=== PATIENT | female | born 1985 | race Caucasian/White ===

== ENCOUNTER 2021-02-11 13:17 | Emergency (ER) | payer MEDICAID ==
[~2021-02-11] VITALS: Ht 165.1 cm; Wt 90.9 kg
[~2021-02-11 13:17] MED LIST: CEPH-585 PO; CIP500T PO; CLIN150C2 PO; CYCL-1 PO; FLO0.4C PO; ONDA4TAB12 PO; TRAM50TA2 PO; ibuprofen
[2021-02-11 13:30] VITALS: BP 117/78
[2021-02-11 13:56] LABS: BASOPHILS % (AUTO) 0.7 % (0-1); EOSINOPHILS # (AUTO) 0.1 X10'3 (0-0.9); EOSINOPHILS % (AUTO) 1.7 % (0-6); HEMATOCRIT 33.9 % (35.0-45.0); HEMOGLOBIN 10.8 g/dl (12.0-16.0); LYMPHOCYTES # (AUTO) 2.1 X10'3 (1.1-4.8); MEAN CORPUSCULAR HEMOGLOBIN 24.8 PG (27.0-31.0); MEAN CORPUSCULAR HGB CONC 31.8 g/dL (33.0-36.5); MEAN CORPUSCULAR VOLUME 78.1 FL (78-98); MEAN PLATELET VOLUME 7.9 FL (7.4-10.4); MONOCYTES # (AUTO) 0.3 X10'3 (0-0.9); NEUTROPHILS # (AUTO) 4.4 X10'3 (1.8-7.7); NEUTROPHILS % (AUTO) 62.6 % (42-75); PLATELET COUNT 376 X10'3 (140-440); RED BLOOD COUNT 4.34 X10'6 (4.20-5.60); RED CELL DISTRIBUTION WIDTH 17.7 % (11.5-14.5)
[2021-02-11 14:16] LABS: ALANINE AMINOTRANSFERASE 19 U/L (12-78); ALBUMIN 3.9 G/DL (3.4-5.0); ALBUMIN/GLOBULIN RATIO 0.9 (1.1-1.5); ALKALINE PHOSPHATASE 61 IU/L (46-116); ANION GAP 15 (8-16); ASPARTATE AMINO TRANSFERASE 9 U/L (10-37); BILIRUBIN,TOTAL 0.3 MG/DL (0.1-1.0); BLOOD UREA NITROGEN 18 MG/DL (7-18); BUN/CREATININE RATIO 29.5 (6.6-38.0); CALCIUM 9.1 MG/DL (8.5-10.1); CHLORIDE 103 MMOL/L (99-107); CREATININE 0.61 MG/DL (0.40-0.90); GLUCOSE 93 MG/DL (70-104); POTASSIUM 3.7 MMOL/L (3.5-5.1); SODIUM 140 MMOL/L (135-145); TOTAL CARBON DIOXIDE 22.1 MMOL/L (24-32); TOTAL PROTEIN 8.1 G/DL (6.4-8.2); eGFR > 90 ML/MIN
[2021-02-11 16:54] LABS: D-DIMER < 0.19 MG/L FEU (0-0.50)
== END 2021-02-11 17:37 | disposition home or self-care (01) ==
LOC: ER 13:18
DX: R07.89 Other chest pain (principal); R11.0 Nausea; Z87.440 Personal history of urinary (tract) infections; Z87.442 Personal history of urinary calculi; Z72.89 Other problems related to lifestyle; Z98.890 Other specified postprocedural states; Z88.2 Allergy status to sulfonamides; Z88.5 Allergy status to narcotic agent; Z88.1 Allergy status to other antibiotic agents; Z88.8 Allergy status to other drugs, medicaments and biological substances; Z79.2 Long term (current) use of antibiotics; Z79.899 Other long term (current) drug therapy
CPT/HCPCS: 36415; 71045; 80053; 83880; 84484; 85025; 85379; 93005; 99285

== ENCOUNTER 2022-08-17 20:55 | Emergency (ER) | payer MEDICAID, OTHER ==
[~2022-08-17] VITALS: Ht 162.6 cm; Wt 90.9 kg
[2022-08-17 21:04] VITALS: BP 124/84
== END 2022-08-17 23:16 | disposition home or self-care (01) ==
LOC: ER 20:56
DX: Z77.21 Contact with and (suspected) exposure to potentially hazardous body fluids (principal); Z87.442 Personal history of urinary calculi; Z79.899 Other long term (current) drug therapy; Z88.2 Allergy status to sulfonamides; Z88.1 Allergy status to other antibiotic agents
CPT/HCPCS: 99281

== ENCOUNTER 2023-08-07 18:45 | Emergency (ER) | payer BC, OTHER ==
[~2023-08-07] VITALS: Ht 162.6 cm; Wt 121.6 kg
[2023-08-07 19:26] LABS: BASOPHILS % (AUTO) 0.5 % (0-1); EOSINOPHILS % (AUTO) 0.4 % (0-6); HEMATOCRIT 34.7 % (35.0-45.0); HEMOGLOBIN 11.7 g/dl (12.0-16.0); LYMPHOCYTES # (AUTO) 1.9 X10'3 (1.1-4.8); LYMPHOCYTES % (AUTO) 21.9 % (21-51); MEAN CORPUSCULAR HEMOGLOBIN 27.6 PG (27.0-31.0); MEAN CORPUSCULAR HGB CONC 33.8 g/dL (33.0-36.5); MEAN CORPUSCULAR VOLUME 81.6 FL (78-98); MONOCYTES # (AUTO) 0.5 X10'3 (0-0.9); MONOCYTES % (AUTO) 5.8 % (2-12); NEUTROPHILS # (AUTO) 6.2 X10'3 (1.8-7.7); NEUTROPHILS % (AUTO) 71.4 % (42-75); PLATELET COUNT 391 X10'3 (140-440); RED BLOOD COUNT 4.24 X10'6 (4.20-5.60); RED CELL DISTRIBUTION WIDTH 16.3 % (11.5-14.5); WHITE BLOOD COUNT 8.7 X10'3 (4.5-11.0)
[2023-08-07 19:28] LABS: ALANINE AMINOTRANSFERASE 28 U/L (12-78); ALBUMIN 3.3 G/DL (3.4-5.0); ALBUMIN/GLOBULIN RATIO 0.8 (1.1-1.5); ALKALINE PHOSPHATASE 91 IU/L (46-116); ANION GAP 7 (8-16); ASPARTATE AMINO TRANSFERASE 19 U/L (10-37); BILIRUBIN,TOTAL 0.4 MG/DL (0.1-1.0); BLOOD UREA NITROGEN 11 MG/DL (7-18); BUN/CREATININE RATIO 12.9 (10.0-20.0); CALCIUM 8.9 MG/DL (8.5-10.1); CHLORIDE 101 MMOL/L (99-107); CREATININE 0.85 MG/DL (0.40-0.90); GLUCOSE 106 MG/DL (70-104); POTASSIUM 3.5 MMOL/L (3.5-5.1); SODIUM 133 MMOL/L (135-145); TOTAL CARBON DIOXIDE 24.8 MMOL/L (24-32); TOTAL PROTEIN 7.6 G/DL (6.4-8.2); eCRCL 76 ML/MIN; eGFR 74 ML/MIN
[2023-08-07 19:38] LABS: PRO BRAIN NATRIURETIC PEPTIDE < 30 PG/ML (0-125)
[2023-08-07] MEDS ORDERED: diphenhydrAMINE 50 mg/ml inj IV ONE ×2 (20:30→21:35)
[2023-08-07] MEDS ORDERED: magnesium 2GM in 50ml NS 50 ML IV ONE (20:30)
[2023-08-07] MEDS ORDERED: metoclopramide 5 mg/ml inj IV ONE ×2 (20:30→21:35)
[2023-08-07 20:43] LABS: HCG SERUM QL NEGATIVE
[2023-08-07 20:47] LABS: BILIRUBIN,URINE NEGATIVE (Neg); CLARITY,URINE SLIGHTLY CLOUDY (Clear); COLOR,URINE STRAW (Yellow); GLUCOSE, URINE NEGATIVE (Neg); KETONES,URINE NEGATIVE (Neg); LEUKOCYTE ESTERASE ,URINE NEGATIVE (Neg); NITRITES, URINE NEGATIVE (Neg); OCCULT BLOOD,URINE MODERATE (Neg); PROTEIN,URINE NEGATIVE (Neg); UROBILINOGEN,URINE 0.2 E.U/dL (0.2-1.0)
[2023-08-07 20:53] LABS: UA COLLECTION TYPE CLN CATCH MIDSTREAM
[2023-08-07 20:54] LABS: MUCUS STRANDS FEW /LPF (Neg); SQUAMOUS EPITHELIAL CELL,UR MODERATE /LPF (FEW)
[2023-08-07 20:55] LABS: BACTERIA,URINE FEW /HPF (Neg); RENAL CELLS, URINE FEW /HPF; WBC,URINE NONE SEEN /HPF (0-4)
[2023-08-07] MEDS ORDERED: meclizine 12.5mg tablet PO ONE (20:55)
[2023-08-07 23:12] VITALS: BP 116/74; PULSE 81; RESP 16; TEMP 98.1; O2SAT 98
== END 2023-08-07 23:17 | disposition home or self-care (01) ==
LOC: ER 18:46
DX: G43.909 Migraine, unspecified, not intractable, without status migrainosus (principal); Z88.0 Allergy status to penicillin; Z88.8 Allergy status to other drugs, medicaments and biological substances; Z88.2 Allergy status to sulfonamides; Z88.5 Allergy status to narcotic agent; Z79.2 Long term (current) use of antibiotics; Z79.899 Other long term (current) drug therapy
CPT/HCPCS: 36415; 71045; 80053; 81001; 83880; 84484; 84703; 85025; 93005; 96365; 96366; 96375; 99285; J1200; J2765; J3475; J8597

== ENCOUNTER 2024-06-29 12:23 | Emergency (ER) | payer BC ==
[~2024-06-29] VITALS: Ht 162.6 cm; Wt 130.1 kg
[~2024-06-29 12:23] MED LIST changes: +ONDA-243 PO; -ONDA4TAB12 PO
[2024-06-29 13:05] LABS: BASOPHILS % (AUTO) 0.7 % (0-1); EOSINOPHILS # (AUTO) 0.1 X10'3 (0-0.9); EOSINOPHILS % (AUTO) 1.3 % (0-6); HEMATOCRIT 29.8 % (35.0-45.0); HEMOGLOBIN 9.5 g/dl (12.0-16.0); LYMPHOCYTES # (AUTO) 1.6 X10'3 (1.1-4.8); LYMPHOCYTES % (AUTO) 25.8 % (21-51); MEAN CORPUSCULAR HEMOGLOBIN 24.1 PG (27.0-31.0); MEAN CORPUSCULAR HGB CONC 31.9 g/dL (33.0-36.5); MEAN CORPUSCULAR VOLUME 75.7 FL (78-98); MEAN PLATELET VOLUME 7.4 FL (7.4-10.4); MONOCYTES # (AUTO) 0.4 X10'3 (0-0.9); NEUTROPHILS % (AUTO) 66.2 % (42-75); PLATELET COUNT 371 X10'3 (140-440); RED BLOOD COUNT 3.94 X10'6 (4.20-5.60); RED CELL DISTRIBUTION WIDTH 18.9 % (11.5-14.5)
[2024-06-29 13:25] LABS: ALBUMIN 3.1 G/DL (3.4-5.0); ANION GAP 10 (8-16); BLOOD UREA NITROGEN 6 MG/DL (7-18); BUN/CREATININE RATIO 7.7 (10.0-20.0); CALCIUM 8.6 MG/DL (8.5-10.1); CHLORIDE 105 MMOL/L (99-107); CREATININE 0.78 MG/DL (0.40-0.90); GLUCOSE 109 MG/DL (70-104); POTASSIUM 3.7 MMOL/L (3.5-5.1); PRO BRAIN NATRIURETIC PEPTIDE 59 PG/ML (0-125); SODIUM 141 MMOL/L (135-145); TOTAL CARBON DIOXIDE 25.7 MMOL/L (24-32); eCRCL 82 ML/MIN; eGFR 81 ML/MIN
[2024-06-29 13:33] LABS: PLATELET ESTIMATE NORMAL
[2024-06-29 13:35] LABS: ANISOCYTOSIS 2+; MICROCYTOSIS 1+; POLYCHROMASIA FEW; STOMATOCYTES FEW
[2024-06-29] MEDS: nitroGLYCERIN 0.4mg SUBLingual tab SL ONE (14:01)
[2024-06-29 15:50] VITALS: BP 125/84; PULSE 77; RESP 16; TEMP 98.5; O2SAT 98
[2024-06-29] MEDS ORDERED: IBUP-1985 PO (15:54)
== END 2024-06-29 16:00 | disposition home or self-care (01) ==
LOC: ER 12:24
DX: R07.89 Other chest pain (principal); R05.9 Cough, unspecified; R06.02 Shortness of breath; R22.43 Localized swelling, mass and lump, lower limb, bilateral; G43.909 Migraine, unspecified, not intractable, without status migrainosus; I10 Essential (primary) hypertension; Z87.440 Personal history of urinary (tract) infections; Z87.442 Personal history of urinary calculi; Z72.89 Other problems related to lifestyle; Z79.899 Other long term (current) drug therapy; Z79.2 Long term (current) use of antibiotics; Z88.0 Allergy status to penicillin; Z88.1 Allergy status to other antibiotic agents; Z88.2 Allergy status to sulfonamides; Z88.8 Allergy status to other drugs, medicaments and biological substances
CPT/HCPCS: 36415; 71045; 80048; 83880; 84484; 85008; 85025; 93005; 99285

== ENCOUNTER 2024-09-07 08:29 | Outpatient (CLI) | payer BC ==
[~2024-09-07 08:29] MED LIST changes: +IBUP-1985 PO
[2024-09-07 09:09] LABS: BILIRUBIN,URINE NEGATIVE (Neg); CLARITY,URINE SLIGHTLY CLOUDY (Clear); COLOR,URINE YELLOW (Yellow); GLUCOSE, URINE NEGATIVE (Neg); KETONES,URINE NEGATIVE (Neg); LEUKOCYTE ESTERASE ,URINE SMALL (Neg); NITRITES, URINE NEGATIVE (Neg); OCCULT BLOOD,URINE LARGE (Neg); PROTEIN,URINE TRACE mg/dl (Neg); UROBILINOGEN,URINE 0.2 E.U/dL (0.2-1.0)
[2024-09-07 09:12] LABS: D-DIMER 0.38 MG/L FEU (0-0.50)
[2024-09-07 09:15] LABS: BASOPHILS % (AUTO) 0.5 % (0-1); EOSINOPHILS # (AUTO) 0.1 X10'3 (0-0.9); EOSINOPHILS % (AUTO) 1.1 % (0-6); HEMOGLOBIN 12.2 g/dl (12.0-16.0); LYMPHOCYTES # (AUTO) 2.5 X10'3 (1.1-4.8); LYMPHOCYTES % (AUTO) 26.2 % (21-51); MEAN CORPUSCULAR HEMOGLOBIN 28.6 PG (27.0-31.0); MEAN CORPUSCULAR VOLUME 84.3 FL (78-98); MONOCYTES # (AUTO) 0.6 X10'3 (0-0.9); MONOCYTES % (AUTO) 6.2 % (2-12); NEUTROPHILS # (AUTO) 6.2 X10'3 (1.8-7.7); PLATELET COUNT 377 X10'3 (140-440); RED BLOOD COUNT 4.27 X10'6 (4.20-5.60); RED CELL DISTRIBUTION WIDTH 20.5 % (11.5-14.5); UA COLLECTION TYPE CLN CATCH MIDSTREAM; WHITE BLOOD COUNT 9.4 X10'3 (4.5-11.0)
[2024-09-07 09:16] LABS: BACTERIA,URINE FEW /HPF (Neg); MUCUS STRANDS NONE SEEN /LPF (Neg); RBC,URINE 20-50 /HPF (0-2); SQUAMOUS EPITHELIAL CELL,UR MANY /LPF (FEW); WBC,URINE 20-30 /HPF (0-4)
[2024-09-07 09:43] LABS: ALANINE AMINOTRANSFERASE 27 U/L (12-78); ALBUMIN 3.3 G/DL (3.4-5.0); ALBUMIN/GLOBULIN RATIO 0.8 (1.1-1.5); ALKALINE PHOSPHATASE 86 IU/L (46-116); ANION GAP 10 (8-16); ASPARTATE AMINO TRANSFERASE 13 U/L (10-37); BILIRUBIN,TOTAL 0.3 MG/DL (0.1-1.0); BLOOD UREA NITROGEN 11 MG/DL (7-18); BUN/CREATININE RATIO 13.4 (10.0-20.0); CALCIUM 10.3 MG/DL (8.5-10.1); CHLORIDE 103 MMOL/L (99-107); CHOL/HDL RATIO 3.1 (0.00-4.99); CHOLESTEROL 170 MG/DL (0-200); CREATININE 0.82 MG/DL (0.40-0.90); FREE T4 (FREE THYROXINE) 0.86 NG/DL (0.73-1.40); GLUCOSE 99 MG/DL (70-104); HDL CHOLESTEROL 55 MG/DL (35-60); LDL CHOLESTEROL 104 MG/DL (50-100); POTASSIUM 3.9 MMOL/L (3.5-5.1); SODIUM 139 MMOL/L (135-145); THYROID STIMULATING HORMONE 2.33 ulU/ml (0.34-4.50); TOTAL CARBON DIOXIDE 26.5 MMOL/L (24-32); TOTAL PROTEIN 7.6 G/DL (6.4-8.2); TRIGLYCERIDES 107 MG/DL (20-135); eGFR 77 ML/MIN
[2024-09-07 11:00] LABS: PLATELET ESTIMATE NORMAL
[2024-09-07 11:01] LABS: ANISOCYTOSIS 3+; ELLIPTOCYTES FEW; POLYCHROMASIA FEW
== END 2024-09-07 23:59 | disposition home or self-care (01) ==
LOC: RAD 08:29
PROVIDERS: ATTEND Nurse Practitioner Family
DX: Z12.2 Encounter for screening for malignant neoplasm of respiratory organs (principal); Z13.29 Encounter for screening for other suspected endocrine disorder; Z13.220 Encounter for screening for lipoid disorders; Z00.01 Encounter for general adult medical examination with abnormal findings; I10 Essential (primary) hypertension; F17.211 Nicotine dependence, cigarettes, in remission; F41.9 Anxiety disorder, unspecified; R60.0 Localized edema; R06.09 Other forms of dyspnea; R06.02 Shortness of breath; Z87.898 Personal history of other specified conditions
CPT/HCPCS: 36415; 71271; 80053; 80061; 81001; 82043; 84439; 84443; 85008; 85025; 85379

== ENCOUNTER 2024-12-22 17:53 | Emergency (ER) | payer BC ==
[~2024-12-22] VITALS: Ht 162.6 cm; Wt 115.5 kg
[2024-12-22 17:56] VITALS: TEMP 98.3
[2024-12-22 18:29] LABS: BASOPHILS % (AUTO) 0.2 % (0-1); EOSINOPHILS # (AUTO) 0.1 X10'3 (0-0.9); HEMATOCRIT 37.2 % (35.0-45.0); LYMPHOCYTES # (AUTO) 1.5 X10'3 (1.1-4.8); LYMPHOCYTES % (AUTO) 13.4 % (21-51); MEAN CORPUSCULAR HEMOGLOBIN 27.4 PG (27.0-31.0); MEAN CORPUSCULAR HGB CONC 32.4 g/dL (33.0-36.5); MEAN CORPUSCULAR VOLUME 84.7 FL (78-98); MEAN PLATELET VOLUME 8.1 FL (7.4-10.4); MONOCYTES # (AUTO) 0.5 X10'3 (0-0.9); MONOCYTES % (AUTO) 4.6 % (2-12); NEUTROPHILS # (AUTO) 9.2 X10'3 (1.8-7.7); NEUTROPHILS % (AUTO) 80.8 % (42-75); PLATELET COUNT 467 X10'3 (140-440); RED BLOOD COUNT 4.39 X10'6 (4.20-5.60); WHITE BLOOD COUNT 11.4 X10'3 (4.5-11.0)
[2024-12-22 18:44] LABS: ALANINE AMINOTRANSFERASE 29 U/L (12-78); ALBUMIN 3.4 G/DL (3.4-5.0); ALBUMIN/GLOBULIN RATIO 0.8 (1.1-1.5); ALKALINE PHOSPHATASE 80 IU/L (46-116); ANION GAP 12 (8-16); ASPARTATE AMINO TRANSFERASE 11 U/L (10-37); BILIRUBIN,TOTAL 0.5 MG/DL (0.1-1.0); BLOOD UREA NITROGEN 8 MG/DL (7-18); BUN/CREATININE RATIO 12.1 (10.0-20.0); CALCIUM 8.9 MG/DL (8.5-10.1); CHLORIDE 103 MMOL/L (99-107); CREATININE 0.66 MG/DL (0.40-0.90); GLUCOSE 107 MG/DL (70-104); POTASSIUM 3.7 MMOL/L (3.5-5.1); SODIUM 138 MMOL/L (135-145); TOTAL CARBON DIOXIDE 22.9 MMOL/L (24-32); TOTAL PROTEIN 7.8 G/DL (6.4-8.2); eCRCL 97 ML/MIN; eGFR > 90 ML/MIN
[2024-12-22 18:52] LABS: PRO BRAIN NATRIURETIC PEPTIDE < 30 PG/ML (0-125)
[2024-12-22] MEDS: ondansetron 4mg rapidly disintigrating tab PO ONE (19:54)
[2024-12-22] MEDS: diazepam 5mg tablet PO ONE (19:54)
[2024-12-22] MEDS: meclizine 12.5mg tablet PO ONE (19:54)
[2024-12-22] MEDS ORDERED: DIAZ5TAB PO (20:07)
[2024-12-22] MEDS ORDERED: ONDA-243 PO (20:07)
[2024-12-22] MEDS ORDERED: MECL-302 PO (20:07)
[2024-12-22 20:23] VITALS: BP 124/82; PULSE 95; RESP 16; O2SAT 100
== END 2024-12-22 20:25 | disposition home or self-care (01) ==
LOC: ER 17:54
DX: R42 Dizziness and giddiness (principal); I10 Essential (primary) hypertension; Z87.440 Personal history of urinary (tract) infections; Z88.0 Allergy status to penicillin; Z88.5 Allergy status to narcotic agent; Z88.6 Allergy status to analgesic agent; Z88.2 Allergy status to sulfonamides; Z88.1 Allergy status to other antibiotic agents; Z79.2 Long term (current) use of antibiotics; Z79.899 Other long term (current) drug therapy
CPT/HCPCS: 36415; 71045; 80053; 83880; 84484; 85025; 93005; 99285; J8597

== ENCOUNTER 2025-03-12 03:20 | Emergency (ER) | payer BC, OTHER ==
[~2025-03-12] VITALS: Ht 162.6 cm; Wt 106.8 kg
[~2025-03-12 03:20] MED LIST changes: +DIAZ5TAB PO; -FLO0.4C PO; +MECL-302 PO; +TAMS-55 PO
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
[2025-03-12 04:00] VITALS: BP 125/98; PULSE 68; RESP 14; TEMP 98.6; O2SAT 100
== END 2025-03-12 04:03 | disposition home or self-care (01) ==
LOC: ER 03:20
DX: Z77.21 Contact with and (suspected) exposure to potentially hazardous body fluids (principal); I10 Essential (primary) hypertension; G43.909 Migraine, unspecified, not intractable, without status migrainosus; Z88.0 Allergy status to penicillin; Z88.2 Allergy status to sulfonamides; Z88.1 Allergy status to other antibiotic agents; Z88.5 Allergy status to narcotic agent; Z79.899 Other long term (current) drug therapy; Z87.442 Personal history of urinary calculi; Z72.89 Other problems related to lifestyle
CPT/HCPCS: 99281

== ENCOUNTER 2025-05-13 23:47 | Emergency (ER) | payer BC, OTHER ==
[~2025-05-13] VITALS: Ht 162.6 cm; Wt 96.3 kg
--- NOTE | 2025-05-14 00:43 | Physician Documentation ---
History of Present Illness ~ Chief Complaint: Headache Stated Complaint: MIGRAINE,VERTIGO Time Seen by MD: 00:42 Primary Medical [facility] Mode of Arrival: POV, Ambulatory HPI Patient presents to the emergency room with migraine headache over the past two days. She has history of migraines. That has taken some Excedrin with limited benefit. She is also having some vertigo however these symptoms has been going on for the past year. She denies one-sided symptoms. Positive photophobia Medication Reconciliation Allergies: Coded Allergies: Penicillins (Unverified Allergy, Severe, 05/14/25) phenazopyridine HCl (Verified Allergy, Mild, RASH, 05/14/25) Sulfa (Sulfonamide Antibiotics) (Verified Allergy, Unknown, 05/14/25) amoxicillin trihydrate (Verified Allergy, Unknown, 05/14/25) codeine (Unverified Allergy, Unknown, 05/14/25) hydrocodone bit (Verified Allergy, Unknown, 05/14/25) potassium clavulanate (Verified Allergy, Unknown, 08/07/23) morphine (Unverified Adverse Reaction, Unknown, 12/22/24) VOMITING Scheduled Cephalexin*Monohydrate* (Keflex*), 2 CAP PO BID Ciprofloxacin Hcl* (Cipro*), 500 MG PO BID, (Reported) Clindamycin (Cleocin ), 300 MG PO Q8H Cyclobenzaprine* (Cyclobenzaprine*), 1 TAB PO TID Meclizine HCl (Meclizine HCl), 2 TAB PO Q6H Tamsulosin Hcl* (Flomax*), 1 CAP PO DAILY Scheduled PRN Diazepam (Valium), 1 TAB PO Q12H PRN for muscle spasms Ibuprofen (Ibuprofen), 1 TAB PO Q6H PRN for pain ONDANSETRON ODT 4mg tablet (Ondansetron Odt), 1 TABLET PO Q6H PRN for nausea/vomiting ONDANSETRON ODT 4mg tablet (Ondansetron Odt), 1 TAB PO Q6H PRN PRN for nausea/vomiting Tramadol HCl (Tramadol HCl), 100 MG PO Q6H PRN Miscellaneous Medications [ibuprofen], (Reported) Past Medical History Past Medical History: Migraine, Hypertension, Pancreatitis, Kidney Stones, UTI, *PSYCH* Past Surgical History: orthopedic surgeries, other Last Menstrual Period: May 09, 2025 Alcohol Use: Occasionally Drug Use: none Lives with: Family Lives In: Home Occupation: employed [employer] ROS All review of systems negative except as per HPI Physical Exam Vital Signs: Temperature: 98.4, Heart Rate: 99, Respiratory Rate: 16, BP: 125/82, Pulse Oximetry: 99, Weight: 96.300 Oxygen Flow Rate: 0 Physical Exam General: Patient is awake, alert, oriented x4 in no acute distress Head: Normocephalic and atraumatic. Eyes: Conjunctival normal. EOMI. PERRL. ENT: Mucous membranes moist. Neck: Supple, trachea is midline. Chest: Clear to auscultation bilaterally without rales, rhonchi, or wheezes. There is no accessory muscle use or retractions. Cardiac: RRR without murmurs, gallops, or rubs. Neuro: Cranial nerves II-XII grossly intact. No focal neuro deficits. Patient ambulating without difficulty. Progress Results/Orders Results/Orders Orders - ALAN MARCELO MD Magnesium Sulf-Water 2g/50ml (Magnesium (05/14/25 00:50) Completed Orders - ALAN MARCELO MD Ketorolac Trometh 15mg/Ml Vial (Toradol (05/14/25 00:50) Normal Saline 1000ml (0.9% Sodium Chlori (05/14/25 00:50) Metoclopramide Inj (Reglan Inj) (05/14/25 00:50) Diphenhydramine Inj (Benadryl Inj.) (05/14/25 00:50) Medications Received in ER Medications (Trade) Dose Ordered Sig/Ruthie Route PRN Reason Start Time Stop Time Status Last Admin Dose Admin (Toradol injection) 15 mg ONCE ONCE IV 05/14/25 00:50 05/14/25 00:51 DC 05/14/25 01:24 15 MG Sodium Chloride 1,000 ml @ 1,000 mls/hr ONCE ONCE IV 05/14/25 00:50 05/14/25 01:49 DC 05/14/25 01:26 1,000 MLS/HR (Reglan inj) 5 mg ONCE ONCE IV 05/14/25 00:50 05/14/25 00:51 DC 05/14/25 01:25 5 MG (Benadryl inj.) 25 mg ONCE ONCE IV 05/14/25 00:50 05/14/25 00:51 DC 05/14/25 01:24 25 MG Magnesium Sulfate 50 ml @ 25 mls/hr ONCE ONCE IV 05/14/25 00:50 05/14/25 02:49 05/14/25 01:26 25 MLS/HR Vital Signs 05/14/25 05/14/25 00:01 00:11 Temp 98.4 Pulse 99 Resp 16 B/P (MAP) 125/82 Pulse Ox 99 O2 Flow Rate 0 Medical Decision Making Findings Patient presented to the emergency room with headache. Headache resolved with medications. He had not suspect acute emergent intracranial process such as bleeds or meningitis. Differential Dx:Considerations: Include: CURIEL-Cluster, CURIEL-Migraine, CURIEL- Hypertensive, Carbon monoxide toxicity, CVA, Hemorrhage-Epidural, Hemorrhage- Intracerebral, Hemorrhage-Subarachnoid, Meningitis, Temporal arteritis Departure Disposition: HOME / SELF CARE / HOMELESS Impression: Primary Impression: Migraine Condition: Improved Discharge Instructions: Migraine Headache Referrals: NO PRIMARY CARE PROVIDER (PCP) Signature Scribe Signature: No scribe Attestation: The note accurately reflects work and decisions made by me.Alan Marcelo MD 05/14/25 01:52 ALAN MARCELO MD May 14, 2025 00:43
[2025-05-14] MEDS: ketorolac trometh 15mg/ml vial 15 MG/ML ML IV ONE (01:24)
[2025-05-14] MEDS: metoclopramide 5 mg/ml inj IV ONE (01:25)
[2025-05-14] MEDS: normal saline 1000ml 1,000 ML IV ONE (01:26)
[2025-05-14] MEDS: magnesium sulf-water 2g/50mL 50 ML IV ONE (01:26)
[2025-05-14 02:31] VITALS: BP_DIAS 64
[2025-05-14 03:48] VITALS: BP_SYST 113; PULSE 77; RESP 19; TEMP 98.4; O2SAT 100
== END 2025-05-14 03:51 | disposition home or self-care (01) ==
LOC: ER 23:47
DX: G43.909 Migraine, unspecified, not intractable, without status migrainosus (principal); I10 Essential (primary) hypertension; Z87.440 Personal history of urinary (tract) infections; Z88.0 Allergy status to penicillin; Z88.2 Allergy status to sulfonamides; Z88.5 Allergy status to narcotic agent
CPT/HCPCS: 96365; 96366; 96375; 99284; J1200; J1885; J2765; J7030

== ENCOUNTER 2025-05-21 08:51 | Outpatient (CLI) | payer BC ==
--- NOTE | 2025-05-21 15:24 | RADIOLOGY REPORT ---
Procedure: CT CT CHEST Reason for study/Clinical History: SOLITARY PULMONARY NODULE;ABNORMAL FINDINGS ON DX IMAGING OF NIRMAL WARRENUC Comparison Study: CT CT CHEST LOW DOSE on DOS: 09/07/24 TECHNIQUE: Multidetector CT of the chest was performed from the lung apices to the upper abdomen with out the use of intravenous contract. Axial, coronal and sagittal multiplanar reformats were performed . Radiation Dose Information: CT Dose: CTDI volume is 16.7 mGy. Dose-length product is 546 mGy*cm The dose indicators for CT are the volume Computed Tomography (CT) Dose Index (CTDIvol) and the Dose Length Product (DLP), and are measured in units of mGy and mGy-cm, respectively. These indicators are not patient dose, but values generated from the CT scanner acquisition factors. The report includes radiation exposure data for exposures received during this examination. FINDINGS: Lower neck: Unremarkable. Lungs: No focal consolidation. Unchanged 0.6 cm nodule in the right lower lobe, image 60. Heart/Vascular Structures: Borderline cardiomegaly. Lymph Nodes: No adenopathy Pleura: No pleural effusion or significant pneumothorax. Musculoskeletal: No acute osseous abnormality. Soft tissues: Normal. Upper abdomen: Hepatic steatosis. IMPRESSION: Unchanged 0.6 cm nodule in the right lower lobe, image 60. Fleischner Society pulmonary nodule recommendations (2017): Single solid nodule <6 mm Low-risk patients: no routine follow-up required High-risk patients: optional CT at 12 months (particularly with suspicious nodule morphology and/or upper lobe location) Solitary solid nodule 6-8 mm Low-risk patients: CT at 6-12 months, then consider CT at 18-24 months High-risk patients: CT at 6-12 months, then CT at 18-24 months Solitary solid nodule >8 mm (>250 mm3) Low-risk and high-risk patients: consider CT at 3 months, PET/CT, or tissue sampling Multiple solid nodules <6 mm Low-risk patients: no routine follow-up required High-risk patients: optional CT at 12 months Multiple solid nodules >6 mm Low-risk patients: CT at 3-6 months, then consider CT at 18-24 months High-risk patients: CT at 3-6 months, then CT at 18-24 months When multiple nodules are present, the most suspicious nodule should guide further individualized management. Solitary groundglass opacities < 6 mm require no follow-up Multiple groundglass opacities < 6 mm: CT 3-6 months. If stable consider CT at 2 , and 4 years Groundglass opacities >6 mm: follow-up in 6-12 months and then every 2 years for 5 years. Groundglass opacities greater than 6 mm with part solid component follow-up CT in 3-6 months to confirm persistence. If unchanged and solid component remains less than [address] for 5 years Multiple groundglass opacities greater than 6 mm: CT at 3-6 months. Subsequent management based on the most suspicious nodules. These recommendations do not necessarily apply to women, patients with immunosuppression or a prior history of cancer, patients with multiple nodules that are suspicious for metastasis or infection, or patients with mediastinal lymphadenopathy or pleural effusion in whom cancer is strongly suspected.
== END 2025-05-21 23:59 | disposition home or self-care (01) ==
LOC: 64 CT 08:51
PROVIDERS: ATTEND Nurse Practitioner Family
DX: R91.1 Solitary pulmonary nodule (principal); R93.89 Abnormal findings on diagnostic imaging of other specified body structures; R31.29 Other microscopic hematuria; N81.4 Uterovaginal prolapse, unspecified
CPT/HCPCS: 71250

== ENCOUNTER 2025-05-30 08:35 | Outpatient (CLI) | payer BC ==
--- NOTE | 2025-05-30 11:19 | RADIOLOGY REPORT ---
US ULTRASOUND KIDNEY NON VASC HISTORY: HEMATURIA, UTURINE PROLAPSE COMPARISON: None TECHNIQUE: Transverse and longitudinal grayscale and color doppler images were obtained of the kidney s and bladder. FINDINGS: Right kidney: Size: 12.7 cm Cortical thickness: Normal Echogenicity: Normal Stones: None Masses: None Hydronephrosis: None Ureters: Not well visualized. Other: None Left kidney: Size: 11.8 cm Cortical thickness: Normal Echogenicity: Normal Stones: None Masses: None Hydronephrosis: None Ureters: Not well visualized. Other: None Bladder: Normal Other: None. IMPRESSION: Normal renal ultrasound.
== END 2025-05-30 23:59 | disposition home or self-care (01) ==
LOC: RAD 08:35
PROVIDERS: ATTEND Nurse Practitioner Family
DX: R93.89 Abnormal findings on diagnostic imaging of other specified body structures (principal); R31.29 Other microscopic hematuria; N81.4 Uterovaginal prolapse, unspecified
CPT/HCPCS: 76770

== ENCOUNTER 2025-05-30 08:43 | Outpatient (CLI) | payer BC ==
[2025-05-30 09:51] LABS: MEAN PLATELET VOLUME 8.2 FL (7.4-10.4); RED CELL DISTRIBUTION WIDTH 16.9 % (11.5-14.5)
[2025-05-30 10:23] LABS: CREATININE 0.77 MG/DL (0.40-0.90); TOTAL CARBON DIOXIDE 26.5 MMOL/L (24-32); eGFR 82 ML/MIN
== END 2025-05-30 23:59 | disposition home or self-care (01) ==
LOC: LAB 08:43
PROVIDERS: ATTEND Specialist
DX: N64.3 Galactorrhea not associated with childbirth (principal)
CPT/HCPCS: 36415; 80048; 80076; 84146; 84702; 85025

== ENCOUNTER 2025-08-05 05:31 | Observation (INO) | payer BC ==
[2025-07-31 14:37] LABS: LEUKOCYTE ESTERASE ,URINE SMALL (Neg); MEAN PLATELET VOLUME 7.8 FL (7.4-10.4); NITRITES, URINE NEGATIVE (Neg); OCCULT BLOOD,URINE LARGE (Neg); PRE OP HEMATOCRIT 30.2 % (35.0-45.0); PRE OP PLATELET COUNT 396 X10'3 (140-440); PRE OP WHITE BLOOD COUNT 7.2 10'3 (4.8-10.8); RED CELL DISTRIBUTION WIDTH 19.5 % (11.5-14.5)
[2025-07-31 14:40] LABS: UA COLLECTION TYPE CLN CATCH MIDSTREAM
[2025-07-31 14:41] LABS: PRE OP HEMOGLOBIN 9.8 g/dL (12.0-16.0)
[2025-07-31 14:47] LABS: MUCUS STRANDS MODERATE /LPF (Neg)
[2025-07-31 14:48] LABS: SQUAMOUS EPITHELIAL CELL,UR FEW /LPF (FEW)
[2025-07-31 14:55] LABS: PRE OP INR 1.0 INR; PRE OP PARTIAL THROMB. TIME 30.0 SECONDS (22-32); PRE OP PROTIME 10.5 SECONDS (9.0-12.0)
[2025-07-31 14:58] LABS: CREATININE 0.75 MG/DL (0.40-0.90); PRE OP ALT 17 U/L (30-65); PRE OP ANION GAP 7 (8-16); PRE OP AST 15 U/L (10-37); PRE OP BILIRUB, TOTAL 0.3 MG/DL (0.0-1.0); PRE OP GLUCOSE 94 MG/DL (70-104); PRE OP SODIUM 142 MMOL/L (135-145); TOTAL CARBON DIOXIDE 27.2 MMOL/L (24-32); eGFR 85 ML/MIN
[2025-07-31 15:04] LABS: HCG SERUM QL NEGATIVE
[2025-07-31 15:05] LABS: PRE OP POTASSIUM 3.1 MMOL/L (3.4-5.1)
[2025-07-31 15:25] LABS: PLATELET ESTIMATE NORMAL
[2025-07-31 15:27] LABS: ELLIPTOCYTES FEW
[2025-08-05] VITALS (30 sets, daily range): BP systolic 95–131; BP diastolic 45–97; PULSE 63–104; RESP 13–21; TEMP 96.6–98.6; O2SAT 96–100
[~2025-08-05] VITALS: Ht 162.6 cm; Wt 88.2 kg
[2025-08-05] MEDS: NORMAL SALINE IV ONE (05:30)
[2025-08-05] MEDS: clindamycin-Cleocin 900mg/D5W 50 ML IV ONE (05:30)
[2025-08-05] MEDS: GENTAMICIN IV ONE (05:30)
[~2025-08-05 05:31] MED LIST changes: +ASPI-130; -CEPH-585 PO; -CIP500T PO; -CLIN150C2 PO; -CYCL-1 PO; -DIAZ5TAB PO; -IBUP-1985 PO; -MECL-302 PO; +MULT-661 PO; -ONDA-243 PO; -TAMS-55 PO; -TRAM50TA2 PO; -ibuprofen
[2025-08-05] MEDS: ringers solution, lacted 1,000 ML IV SCH ×2 (06:31→10:00)
[2025-08-05] MEDS ORDERED: BUPIVAcaine 0.25% w/Epi /PF 30ml vial ONE (06:43)
[2025-08-05] MEDS ORDERED: clindamycin phosphate 40gm vag cream ONE (06:43)
[2025-08-05] MEDS ORDERED: vasoPRESSIN 20 units/ml inj. ONE ×2 (06:44→06:46)
[2025-08-05 07:02] LABS: ISTAT ANION GAP 14 (8-12); ISTAT BUN 9 mg/dL (7-18); ISTAT CL 106 mmol/L (99-107); ISTAT CREATININE 0.7 mg/dL (0.6-1.1); ISTAT GLUCOSE 89 mg/dL (70-104); ISTAT HGB 10.9 g/dl (12.0-16.0); ISTAT Hct 32 %PCV (35-45); ISTAT IONIZED CALCIUM 1.19 mmol/L (1.03-1.32); ISTAT K 3.3 mmol/L (3.5-5.1); ISTAT NA 139 mmol/L (135-145); ISTAT TOTAL CO2 19 mmol/L (24-32); ISTAT eGFR > 90 ML/MIN; POC BUN/CREATININE RATIO 12.9 (6.6-38.0)
[2025-08-05] MEDS: aprepitant 40mg capsule PO ONE (07:16)
[2025-08-05] MEDS ORDERED: midazolam 1 mg/ML 2ml injection ONE (07:21)
[2025-08-05] MEDS ORDERED: ePHEDrine 50MG/ML INJ. ONE (07:25)
[2025-08-05] MEDS ORDERED: fentaNYL /PF 50mcg/ml 5ml ampule ONE (07:39)
[2025-08-05] MEDS ORDERED: propofol inj 20 ML IV ONE ×3 (07:56)
[2025-08-05] MEDS ORDERED: dexamethasone sod phosphate 4mg/ml inj. ONE (07:56)
[2025-08-05] MEDS ORDERED: ondansetron/PF 4mg/2ml inj ONE (07:56)
[2025-08-05] MEDS ORDERED: LIDOcaine 2% (20mg/ml) 5ml vial ONE (07:56)
[2025-08-05] MEDS ORDERED: rocuronium 10mg/ml inj IV ONE (07:56)
[2025-08-05] MEDS: BUPIVAcaine 0.25% w/Epi /PF 30ml vial IJ ONE (08:03)
[2025-08-05] MEDS ORDERED: 0.9 % SODIUM CHLORIDE 10 ML VIAL ONE (09:18)
[2025-08-05] MEDS ORDERED: fluoroscein sod 10% (100mg/ml) 5ml vial ONE (09:18)
[2025-08-05] MEDS ORDERED: HYDROmorphone/PF 0.2 MG/ML SYRINGE IV PRN (10:00)
[2025-08-05] MEDS ORDERED: hydrALAZINE 20mg/ml inj. IV PRN (10:00)
[2025-08-05] MEDS ORDERED: labetalol 20mg/4ml (5mg/ml) syringe IV PRN (10:00)
--- NOTE | 2025-08-05 10:05 | OPERATIVE REPORT ---
DATE OF SURGERY: 08/05/2025 DICTATING PHYSICIAN: Ko Fitch MD PREOPERATIVE DIAGNOSES: 1. Grade 2 pelvic organ prolapse. 2. Stress urinary incontinence. POSTOPERATIVE DIAGNOSES: 1. Grade 2 pelvic organ prolapse. 2. Stress urinary incontinence. PROCEDURES: 1. Total vaginal hysterectomy. 2. Uterosacral vaginal vault suspension. 3. Anterior and posterior colporrhaphy with enterocele plication. 4. Transobturator tape procedure. 5. Cystoscopy. SURGEON: Ko Fitch MD MANAGER SMALL BUSINESS: Dr. Kunal Smith. ANESTHESIOLOGIST: Dr. Mathur. ANESTHESIA: General anesthetic. COMPLICATIONS: None. ESTIMATED BLOOD LOSS: 50 mL. MEDICATION: IV antibiotic preoperatively. SPECIMENS: Uterus and cervix. PRINCIPAL FINDINGS: Grade 2 pelvic organ prolapse. DESCRIPTION OF PROCEDURE: General anesthesia was found to be adequate and the patient was placed in high lithotomy. The patient was prepped and draped in the normal sterile fashion. The bladder was drained of urine. A posterior speculum was placed in the vagina. The tenaculum was placed on the anterior lip of the cervix. A 0.25% Marcaine paracervical block was performed. Vaginal epithelium was then incised circumferentially at the vaginal fornix with monopolar cautery. The posterior cul-de-sac was entered sharply and a long posterior speculum was placed in the posterior cul-de-sac. Uterosacral ligaments were clamped, cut, and suture ligated and tagged for use later in the case. Cardinal ligaments were clamped, cut, and suture ligated. The anterior dissection was then performed and the anterior cul-de-sac entered sharply and a lighted ring retractor placed in the anterior cul-de-sac. on each side were clamped, cut, and suture ligated. This then freed the specimen which was removed and sent to pathology. Pedicles were reinspected and found to be hemostatic. Tubes and ovaries were visualized and seemed to be normal. Uterosacral vaginal vault suspension was then performed without complication. A stitch of 0 Ethibond was then reefed along the right uterosacral ligament starting high in the pelvis and then reefing along the uterosacral ligament to its attachment in the posterior aspect of the vagina. This was tagged for use later in the case. The same stitch was placed on the opposite side. The anterior and posterior peritoneum were then closed with a simple stitch of 2-0 Vicryl incorporating the pubocervical ring. The remainder of the pubocervical ring was reapproximated with interrupted stitches of 2-0 Vicryl. IrriSept was applied to the vaginal cuff and excellent hemostasis was observed. The previously placed uterosacral vaginal vault suspension stitches were tied down, which elevated the cuff nicely. The vaginal epithelium was then closed with interrupted stitches of 2-0 Vicryl. Again, excellent hemostasis was observed. Anterior dissection was then performed by first injecting 0.25% Marcaine from the mid urethra up to the vaginal apex in the midline anteriorly. A rent was made in the vaginal epithelium underneath the mid urethra and carried up to the vaginal apex in the midline. T-clamps were placed laterally with a combination of sharp and blunt dissection. The cystocele was dissected off the vaginal epithelium. Dissection was carried out to the undersurface of the lateral pubic rami. The Altis transobturator tape was then placed, anchored first on the patient's right, then on the patient's left. Slack was taken out of the tape to place the tape under no tension underneath the mid urethra. IrriSept irrigation was applied. Excellent hemostasis was observed. Plication stitches of 2-0 Vicryl were used to reduce the remainder of the cystocele. The excess vaginal epithelium was excised and then the vaginal epithelium was closed in a running fashion with 2-0 Vicryl. Posterior dissection was then performed by first excising a rosa-shaped segment of the tissue off the perineal body. The incision was extended superiorly and posteriorly in the midline up to the vaginal apex. T-clamps were placed laterally with a combination of sharp and blunt dissection. The rectocele was dissected off the vaginal epithelium. A transverse rectovaginal fascial defect was noted with a large enterocele. To close the enterocele, a stitch of 0 Ethibond was reefed along the transverse rectovaginal fascial defect and resuspended to the vaginal apex. This closed the enterocele nicely. Further plication stitches of 2-0 Vicryl were used to reduce the remainder of the rectocele. The excess vaginal epithelium was excised and the vaginal epithelium closed from the vaginal apex down to the hymenal ring. The remainder of the repair was done in a standard episiotomy repair fashion and this built up the perineal body nicely. Fluorescein dye had been given intravenously at this point and a 70-degree cystoscope was introduced into the urinary bladder. There were no masses, lesions, or injury to the bladder and there was normal efflux of fluorescein-stained urine from both the right and the left ureteral orifices. A transurethral catheter was placed. Vaginal packing was placed. General anesthesia was reversed. The patient was taken out of lithotomy and she was transferred to the recovery room in stable condition. Ko Fitch MD TID: [id number] RECEIPT: [id number] RONNELL/WARD
[2025-08-05] MEDS: HYDROmorphone/PF 0.2 MG/ML SYRINGE IV PRN (10:08)
[2025-08-05] MEDS: acetaminophen 1,000mg/100ml IV 100 ML IV PRN (10:09)
[2025-08-05] MEDS: fentaNYL/PF 50MCG/1 ML 2ML syringe IV PRN ×2 (10:20→12:57)
[2025-08-05] MEDS: ondansetron/PF 4mg/2ml inj IV PRN (11:22)
[2025-08-05] MEDS ORDERED: ondansetron/PF 4mg/2ml inj IV PRN (12:05)
[2025-08-05] MEDS ORDERED: potassium Cl 40MEQ/1/2NS 520ml 520 ML IV PRN (12:55)
[2025-08-05] MEDS: oxyCODONE IR 5mg (immed. release) tablet PO PRN (15:29)
[2025-08-05] MEDS: potassium Cl 20 mEq SR tablet PO PRN ×2 (16:09→20:34)
[2025-08-05] MEDS: ketorolac trometh 15mg/ml vial 15 MG/ML ML IV PRN (16:16)
[2025-08-05] MEDS: K and/or MAG REPLACEMENT MC SCH (20:36)
[2025-08-06 02:06] VITALS: BP 92/52; PULSE 66; RESP 17; TEMP 98.5; O2SAT 99
[2025-08-06 06:46] VITALS: BP 98/64; PULSE 78; RESP 16; TEMP 98; O2SAT 100
[2025-08-06 08:47] VITALS: RESP 16; O2SAT 100
--- NOTE | 2025-08-06 10:34 | PATHOLOGY REPORT ---
[facility] [address] [place] [address] SURGICAL PATHOLOGY REPORT CaseNumber: [id number] Surgeon:Ko Beasley M.D. CLINICAL INFORMATION CLINICAL INFORMATION: Proplapse, incontinence. DIAGNOSIS DIAGNOSIS: UTERUS AND CERVIX, TOTAL VAGINAL HYSTERECTOMY - MILD CERVICAL CHRONIC INFLAMMATION AND REACTIVE CHANGES - AREAS OF ECTOCERVICAL EROSION, CONSISTENT WITH PROLAPSE - PROLIFERATIVE ENDOMETRIUM WITHOUT ARCHITECTURAL COMPLEXITY - FAIRLY PROMINENT MYOMETRIAL ADENOMYOSIS - NO MYOMETRIAL LEIOMYOMAS - NO DYSPLASTIC OR NEOPLASTIC FEATURES MICROSCOPIC DESCRIPTION MICROSCOPIC DESCRIPTION: Reviewed are five H&E-stain slides. The sections of cervix (A1) are lined by endocervical and ectocervical-type mucosa. Some of the endocervical glands are significantly dilated, and are filled with mucoid material. At the junction between the endocervix and the ectocervix, there is an area of mild chronic inflammation and reactive changes. Areas of ectocervical erosion are noted, consistent with the clinical history of prolapse. There are no dysplastic or neoplastic features. The endometrium (A2- 4) shows glandular elements with proliferative features. The surrounding stroma is histologically unremarkable, without significant architectural complexity. The underlying myometrium is comprised of the usual dense intersecting bundles of smooth muscle and prominent vasculature. There are areas associated with fairly prominent myometrial adenomyosis. No leiomyomas are identified. GROSS DESCRIPTION GROSS DESCRIPTION: Received in a container of formalin labeled with the patient's name, number, and uterus and cervix" is a 129 gram uterus with attached cervix. The uterine corpus measures 6 x 6 x 5.5 cm. The attached cervix measures 4 cm long by 4 cm in diameter. The cervical os is multiparous. The s erosa is smooth, shiny, and pink-choudhary. Sectioning reveals a smooth red choudhary endometrium which measures up to 0.4 cm thick. Sectioning the myometrium fails to reveal areas of nodularity; however, the myometrium is trabeculated with structures suggestive of adenomyosis. The myometrium measures up to 3.2 cm thick. Sectioning the cervix reveals a smooth glistening schroeder-white mucosa without areas of ulceration. Sections are submitted as follows:A1) CervixA2-A3) Endo and myometrium(divided full thickness section )A4) Endo and myometriumA5) SerosaThe time at which the specimen was removed was 0820. The time at which the specimen was placed in formalin was 0823. Electronically signed by: Hector Zapata M.D. 08/06/2025 10:03:00 AM
[2025-08-06 11:06] VITALS: BP 92/50; PULSE 75; RESP 13; TEMP 98.2; O2SAT 97
[2025-08-06 11:23] VITALS: RESP 18
[2025-08-12] MEDS ORDERED: METR-159 PO (01:38)
[2025-08-12] MEDS ORDERED: CIPR-458 PO (01:38)
[2025-08-12] MEDS ORDERED: OXYC-658 PO (09:11)
[2025-08-12] MEDS ORDERED: DOCU-148 PO (09:26)
== END 2025-08-06 11:36 | disposition home or self-care (01) ==
LOC: PAS 05:31 → SUR 3N 10:55
PROVIDERS: ADMIT Specialist; ATTEND Specialist
DX: N81.9 Female genital prolapse, unspecified (principal); N39.3 Stress incontinence (female) (male); N81.6 Rectocele; N81.10 Cystocele, unspecified; N81.5 Vaginal enterocele; R79.1 Abnormal coagulation profile; Z79.899 Other long term (current) drug therapy; Z98.890 Other specified postprocedural states
CPT/HCPCS: 36415; 57260; 57288; 58263; 80047; 80053; 81001; 84703; 85025; 85610; 85730; 86885; 86900; 86901; 87088; 96374; 96375; 96376; A6402; C1771; G0378; J0131; J0665; J0780; J1100; J1171; J1580; J1885; J2003; J2250; J2405; J2704; J3010; J3490; J7120; J8501; 85008; A4338; A4355; A4615; A4618; A7000; J7030

== ENCOUNTER 2025-08-21 09:18 | Day surgery (SDC) | payer BC ==
[~2025-08-21] VITALS: Ht 162.6 cm; Wt 93.4 kg
[~2025-08-21 09:18] MED LIST changes: +CIPR-458 PO; +DOCU-148 PO; +METR-159 PO; +OXYC-658 PO
[2025-08-21 09:54] VITALS: BP 103/64; PULSE 90; RESP 12; RESP 14; TEMP 99; O2SAT 99
[2025-08-21] MEDS ORDERED: OXYC-658 PO (09:57)
[2025-08-21] MEDS ORDERED: AMOX-115 PO (10:02)
[2025-08-21 12:30] VITALS: BP 105/62; PULSE 88; RESP 12; O2SAT 99
--- NOTE | 2025-08-21 16:52 | PROGRESS NOTE ---
H&P - Interval Note Providers to CC ~ Patient examined and condition: Yes Interval changes as follows: Paper H and P done today and in chart. No longer needs left transgluteal drain for post hysterectomy hematoma. Denies fever, chills, sweats. Removed without incident. MICHAEL ANTONIO MD Aug 21, 2025 16:52
--- NOTE | 2025-08-21 18:14 | RADIOLOGY REPORT ---
Removal of existing left transgluteal pigtail drainage catheter. HISTORY: Vaginal hysterectomy with hematoma in the left lower pelvis. Pigtail drainage catheter placed at [facility] via left transgluteal approach. Gynecologists recommends removal given low outputs of mostly dark bloody fluid. After explanation of the above procedure and informed consent, surgical timeout was performed. The existing small caliber pigtail drainage catheter in the left lower hemipelvis via transgluteal approach was removed without incident. Gauze and digital compression for 10 minutes utilized for hemostasis. There were no immediate complications. IMPRESSION: Successful removal of existing left transgluteal pigtail drainage catheter.
== END 2025-08-21 12:30 | disposition home or self-care (01) ==
LOC: SSTAY O 09:18
PROVIDERS: ATTEND Radiology Diagnostic Radiology
DX: Z48.03 Encounter for change or removal of drains (principal); L76.32 Postprocedural hematoma of skin and subcutaneous tissue following other procedure; Z88.1 Allergy status to other antibiotic agents; Z88.2 Allergy status to sulfonamides; Z88.0 Allergy status to penicillin; Z88.8 Allergy status to other drugs, medicaments and biological substances; Z82.3 Family history of stroke; Z80.3 Family history of malignant neoplasm of breast
CPT/HCPCS: A6222; A6258; A6449

== ENCOUNTER 2025-08-23 02:24 | Emergency (ER) | payer BC ==
[~2025-08-23] VITALS: Ht 162.6 cm; Wt 105.0 kg
[~2025-08-23 02:24] MED LIST changes: +AMOX-115 PO
--- NOTE | 2025-08-23 02:39 | ELECTROCARDIOGRAPH REPORT ---
[facility] Test Date: 2025-08-23 Test Time: 02:34:14 Pat Name: GIACOMO ALBERTO Department: EMERGENCY ROOM Room: Gender: F Stone Splitter: : 1985 Requested By: ALEISHA KASPER Order Number: [id number] Reading MD: Dr. Jarvis Mohan Measurements Intervals Boaz Rate: 90 P: 38 TN: 159 QRS: 48 QRSD: 90 T: -10 QT: 356 QTc: 436 Interpretive Statements Sinus rhythm Borderline T abnormalities, diffuse leads Electronically Signed On 08-23-2025 7:40:[address] Jarvis Mohan Please click the below link to view image of tracing.
[2025-08-23 03:15] LABS: MEAN PLATELET VOLUME 7.8 FL (7.4-10.4); RED CELL DISTRIBUTION WIDTH 19.3 % (11.5-14.5)
[2025-08-23 03:21] LABS: INR 1.0 INR
[2025-08-23 03:31] LABS: CREATININE 0.68 MG/DL (0.40-0.90); PRO BRAIN NATRIURETIC PEPTIDE 242 PG/ML (0-125); TOTAL CARBON DIOXIDE 24.2 MMOL/L (24-32); eCRCL 93 ML/MIN; eGFR > 90 ML/MIN
--- NOTE | 2025-08-23 03:43 | Physician Documentation ---
History of Present Illness ~ Chief Complaint: Chest Pain Stated Complaint: CHEST PAINS M ALS Time Seen by MD: 03:42 Primary Medical Doctor: SUSHANT Mode of Arrival: EMS HPI Patient presents to the emergency room for evaluation of chest pain that woke her up out of sleep. Describes the pain as squeezing in nature. No current chest discomfort. 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 She is not on blood thinners. No current symptoms of chest pain or shortness of breath. She does not smoke and denies any history of high blood pressure cholesterol or diabetes. She does endorse family history of heart disease in her mother. Patient reports a negative stress test in April by Dr. Arellano. Medication Reconciliation Allergies: Coded Allergies: Penicillins (Unverified Allergy, Severe, ANAPHYLAXIS, 08/11/25) Sulfa (Sulfonamide Antibiotics) (Verified Allergy, Intermediate, RASH, 08/11/25) phenazopyridine HCl (Verified Allergy, Mild, RASH, 08/11/25) amoxicillin trihydrate (Verified Allergy, Unknown, 08/11/25) codeine (Unverified Allergy, Unknown, 08/11/25) hydrocodone bit (Verified Allergy, Unknown, 08/11/25) potassium clavulanate (Verified Allergy, Unknown, 08/07/23) morphine (Unverified Adverse Reaction, Unknown, 12/22/24) VOMITING Scheduled Amox Tr/Potassium Clavulanate (Augmentin 500-125 Tablet), 1 TAB PO Q12H, (Reported) Scheduled PRN Oxycodone Hcl IR* (Oxycodone IR*), 2 TAB PO TID PRN for moderate or severe pain, (Reported) Discontinued Medications Aspirin/Acetaminophen/Caffeine (Excedrin Tablet), for headache, (Reported) Discontinued Reason: patient no longer taking Ciprofloxacin HCl (Ciprofloxacin HCl), 1 TAB PO Q12H Discontinued Reason: patient no longer taking Metronidazole* (Flagyl*), 1 TAB PO Q8H Discontinued Reason: patient no longer taking Multivitamin W/Iron, Minerals (Multivitamins with Iron), 1 TAB PO DAILY, (Reported) Discontinued Reason: patient no longer taking Oxycodone Hcl IR* (Oxycodone IR*), 5 TAB PO Q4H PRN for pain, (Reported) Discontinued Reason: patient no longer taking Past Medical History Past Medical History: Migraine, Hypertension, Pancreatitis, Kidney Stones, UTI, *PSYCH* Past Surgical History: hysterectomy, orthopedic surgeries, other Patient History: FH: breast cancer (Mother,) FH: stroke (Father, mother) Alcohol Use: Rarely Drug Use: none Lives with: Family Lives In: Home Occupation: employed Review of Systems ROS All review of systems negative except as per HPI Physical Exam Vital Signs: Temperature: 98.6, Source: Oral, Heart Rate: 95, Respiratory Rate: 16, BP: 102/63, Pulse Oximetry: 99, Weight: 105.000 Physical Exam General: Patient is awake, alert, oriented x4 in no acute distress and well appearing.~ Head: Normocephalic and atraumatic. Eyes: Conjunctival normal. EOMI. PERRL. ENT: Mucous membranes moist. Neck: Supple, trachea is midline. Chest: Clear to auscultation bilaterally without rales, rhonchi, or wheezes. There is no accessory muscle use or retractions. Cardiac: RRR without murmurs, gallops, or rubs. Abd: Soft, nondistended, nontender, with normoactive bowel sounds. No guarding, rebound, or rigidity. Surgical sites on abdomen appear noninfected Back: Surgical drainage site with bandage clean dry and intact Progress Results/Orders Results/Orders Orders - ALAN MARCELO MD Chest,Single View (08/23/25 02:37) Monitor (08/23/25 02:37) Saline Lock (08/23/25 02:37) Oxygen (08/23/25 02:37) Hs Troponin I W Calculations (08/23/25 05:37) Cta Chest Pe (08/23/25 03:48) Completed Orders - ALAN MARCELO MD Chest,Single View (08/23/25 02:37) Cbc/Diff (08/23/25 02:37) BMP (08/23/25 02:37) PBNP (08/23/25 02:37) Electrocardiogram (08/23/25 02:37) Hs Troponin I W Calculations (08/23/25 02:37) Hs Troponin I W Calculations (08/23/25 04:37) D-Dimer (08/23/25 02:51) Pt Inr (08/23/25 02:51) Cta Chest Pe (08/23/25 03:48) Iohexol 350mg/Ml 100ml (Omnipaque 350mg/ (08/23/25 03:59) Vital Signs 08/23/25 08/23/25 08/23/25 02:27 02:55 04:26 Temp 98.6 97.4 Pulse 95 90 Resp 18 16 20 B/P (MAP) 102/63 88/66 (73) Pulse Ox 99 96 O2 Flow Rate 0 Laboratory Tests Test 08/23/25 02:47 08/23/25 05:19 White Blood Count 9.6 Red Blood Count 3.30 L Hemoglobin 9.0 L Hematocrit 27.1 L Mean Corpuscular Volume 82.1 Mean Corpuscular Hemoglobin 27.2 Mean Corpuscular Hemoglobin Concent 33.1 Red Cell Distribution Width 19.3 H Platelet Count 380 Mean Platelet Volume 7.8 Neutrophils (%) (Auto) 79.2 H Lymphocytes (%) (Auto) 13.0 L Monocytes (%) (Auto) 5.1 Eosinophils (%) (Auto) 2.4 Basophils (%) (Auto) 0.3 Neutrophils # (Auto) 7.6 Lymphocytes # (Auto) 1.2 Monocytes # (Auto) 0.5 Eosinophils # (Auto) 0.2 Basophils # (Auto) 0.0 CBC Comment Prothrombin Time 10.3 INR International Normalized Ratio 1.0 D-Dimer 3.16 H D-Dimer Comment Coagulation Comments Sodium Level 138 Potassium Level 3.8 Chloride Level 108 H Carbon Dioxide Level 24.2 Anion Gap 6 L Blood Urea Nitrogen 10 Creatinine 0.68 Estimated GFR/1.73 m2 > 90 BUN/Creatinine Ratio 14.7 Glucose Level 116 H Calcium Level 7.9 L Troponin I High Sensitivity < 4 L < 4 L Troponin I High Sens Percent Delta Troponin I Hi Sens Absolute Change Pro-B-Type Natriuretic Peptide 242 H Albumin 2.2 L Chemistry Comments EKG/XRAY/CT/US/VASC/MRI EKG : Additional Comment EKG interpreted by myself shows time of 0234, rate 90, sinus rhythm, normal axis, no ST changes Chest X-Ray : Additional Comments Chest x-ray interpreted by myself is negative for effusions, negative for infiltrates and normal cardiac silhouette Medical Decision Making Additional information obtaine: old records Findings Patient presented to the emergency room for evaluation of chest pain. Differentials include but are not limited to reflux, ACS, musculoskeletal pain, pulmonary embolism, aortic pathology therefore emergent labs and imaging cody cated. No back pain he had not feel patient requires investigation into aortic pathology especially in the light of her age. CTA negative for pulmonary embolism. Patient's symptoms have resolved. Given her recent negative stress test in 2- troponins he had not feel patient's chest pain is cardiogenic really related. Unknown cause. Possible reflux. The need to follow up with her doctor discussed as well as ER precautions. Heart Score: 3 Differential Dx:Considerations: Include: angina, aortic dissection, chest wall pain, cholelithiasis, CHF, costochondritis, esophageal reflux/spasm, gastritis, herpes zoster, myocardial infarction, pericarditis, pleuritis, pancreatitis, pneumonia, pneumothorax, pulmonary embolus, other Departure Disposition: 01 HOME / SELF CARE / HOMELESS Impression: Primary Impression: Chest pain Condition: Stable Discharge Instructions: Nonspecific Chest Pain, Adult Referrals: NO PRIMARY CARE PROVIDER (PCP) Signature Scribe Signature: No scribe Attestation: The note accurately reflects work and decisions made by me.Alan Marcelo MD 08/23/25 05:09 ALAN MARCELO MD Aug 23, 2025 03:43
--- NOTE | 2025-08-23 04:54 | RADIOLOGY REPORT ---
CTA Chest with intravenous contrast INDICATION: Elevated D-dimer. COMPARISON: CT CT CHEST on DOS: 05/21/25, CT CT CHEST LOW DOSE on DOS: 09/07/24 TECHNIQUE: Multidetector spiral CTA of the chest was performed of the chest with 100 mL Omnipaque 350 intravenous contrast. PULMONARY ANGIOGRAPHY PROTOCOL was utilized using a bolus-tracking technique centered on the main pulmonary artery. Coronal and sagittal multiplanar and MIP reformats were performed. Radiation Dose : 1. Chest: CTDI volume is 20.9 mGy. Dose-length product is 823.1 mGy*cm The dose indicators for CT are the volume Computed Tomography (CT) Dose Index (CTDIvol) and the Dose Length Product (DLP), and are measured in units of mGy and mGy-cm, respectively. These indicators are not patient dose, but values generated from the CT scanner acquisition factors. The report includes radiation exposure data for exposures received during this examination. FINDINGS: Pulmonary artery: No central, lobar or proximal segmental pulmonary embolus. Lower neck: Unremarkable thyroid. Lungs: No suspicious pulmonary nodule. No consolidation. Central airways: Patent. Pleura: No pneumothorax. No pleural effusions. Heart/Vascular Structures: The heart is normal in size. No pericardial effusion. Thoracic aorta is normal in caliber. No aneurysm or dissection. Lymph Nodes: No mediastinal or hilar lymphadenopathy. Esophagus:Grossly unremarkable. Musculoskeletal: Unremarkable. Body wall: Unremarkable. Upper abdomen: Unremarkable. IMPRESSION: 1. No evidence of pulmonary embolism. 2. No acute or significant intrathoracic abnormalities.
[2025-08-23 07:01] VITALS: BP 107/56; PULSE 80; RESP 18; TEMP 97.4; O2SAT 98
--- NOTE | 2025-08-23 23:11 | RADIOLOGY REPORT ---
CHEST RADIOGRAPH Indication: CP Technique: Single frontal view of the chest was obtained COMPARISON: DI CHEST,SINGLE VIEW on DOS: 06/30/25, CT CT CHEST on DOS: 05/21/25, DI CHEST,SINGLE VIEW on DOS: 12/22/24, CT CT CHEST LOW DOSE on DOS: 09/07/24, DI CHEST,SINGLE VIEW on DOS: 06/29/24 FINDINGS: Lines and Tubes: None Lungs: Clear Pleura: No effusion. No pneumothorax. Cardiomediastinal contours: Unremarkable Bones: Unremarkable IMPRESSION: 1. No acute disease.
== END 2025-08-23 07:02 | disposition home or self-care (01) ==
LOC: ER 02:25
DX: R07.9 Chest pain, unspecified (principal); I10 Essential (primary) hypertension; G43.909 Migraine, unspecified, not intractable, without status migrainosus; Z88.0 Allergy status to penicillin; Z88.2 Allergy status to sulfonamides; Z88.1 Allergy status to other antibiotic agents; Z88.5 Allergy status to narcotic agent; Z87.442 Personal history of urinary calculi; Z90.710 Acquired absence of both cervix and uterus; Z87.440 Personal history of urinary (tract) infections; Z87.19 Personal history of other diseases of the digestive system
CPT/HCPCS: 36415; 71045; 71275; 80048; 83880; 84484; 85025; 85379; 85610; 93005; 99285; Q9967

== ENCOUNTER 2025-09-03 12:12 | Outpatient (CLI) | payer BC ==
[2025-09-03 12:31] LABS: MEAN PLATELET VOLUME 7.3 FL (7.4-10.4); RED CELL DISTRIBUTION WIDTH 19.3 % (11.5-14.5)
[2025-09-03 13:53] LABS: LARGE PLATELETS FEW; PLATELET ESTIMATE INCREASED
== END 2025-09-03 23:59 | disposition home or self-care (01) ==
LOC: LAB 12:12
PROVIDERS: ATTEND Specialist
DX: Z09 Encounter for follow-up examination after completed treatment for conditions other than malignant neoplasm (principal)
CPT/HCPCS: 36415; 85008; 85025